=== PATIENT | female | born 1980 ===

== ENCOUNTER 2019-11-21 15:35 | Observation (INO) | payer OTHER ==
[2019-11-21] MEDS ORDERED: LORazepam 2 MG/ML INJ IV PRN ×2 (15:46→15:59)
--- NOTE | 2019-11-21 15:50 | ED ---
General Adult HPI - General Stated complaint: seizure - History of Present Illness Initial comments: Dictation was produced using rVue dictation software. please excuse any grammatical, word or spelling errors. This patient was cared for during a federal and state declared state of emergency secondary to Covid 19 Chief Complaint: 39-year-old female brought in by EMS for seizures. History of Present Illness: 39-year-old female she checked in today at [address] [place] [address]. According EMS patient began having seizures. EMS was called. Patient to the emergency department. EMS reports that patient had 2 episodes of seizures one when they initially got there and one en route to the emergency department. Patient was given a total of 10 mg of IV Versed and 4 mg of Zofran. Patient able to give some history while in the emergency department. Patient states she drinks half a gallon of liquor on a regular basis. Patient states she's had EtOH withdrawal seizures in the past. Patient states her last EtOH intake was earlier today. Patient is a limited historian. She has no pain complaints. The ROS documented in this emergency department record has been reviewed and confirmed by me. Those systems with pertinent positive or negative responses have been documented in the HPI. All other systems are other negative and/or noncontributory. PHYSICAL EXAM: General Impression: Alert and oriented x3, not in acute distress, lethargic, nystagmus, smells of EtOH HEENT: Normocephalic atraumatic, extra-ocular movements intact, pupils equal and reactive to light bilaterally, mucous membranes moist, poor dentition Cardiovascular: Heart regular rate and rhythm Chest: Able to complete full sentences, no retractions, no tachypnea Abdomen: abdomen soft, non-tender, non-distended, no organomegaly Musculoskeletal: Pulses present and equal in all extremities, no peripheral edema Motor: no focal deficits noted Neurological: CN II-XII grossly intact, no focal motor or sensory deficits noted Skin: Intact with no visualized rashes Psych: Normal affect and mood ED course: 39-year-old female presents with seizures. Patient's chronic alcoholic. She reports that she drinks half a gallon of liquor a day. Presentation is likely secondary to EtOH withdrawal. Last EtOH intake according to patient was earlier today. Patient began having seizure-like activity however she responded to gag and immediately stopped tremulous activities of the extremities. Patient reports that the nurse that she was suicidal and she would jump off a bridge. Laboratory evaluation obtained. CBC unremarkable. Metabolic panel shows bicarb of 18 with no anion gap. AST 41 rest of metabolic panel is unremarkable. Suggest slight degree of alcoholic ketoacidosis given that patient's alcohol is 269. Tox labs are negative. Patient is inebriated however she is an bleeding appropriately and demanding that she wants to leave. She removed her own IV. Patient verbally ED escalated and was agreeable to admission along with the convincing of her significant other at bedside. Patient's well-appearing. However there is concern of a alcohol withdrawal seizure. Discussed patient case with [facility] physician Dr. Claudio who is willing to accept patients care for admission. EKG interpretation: Ventricular rate 116, sinus tachycardia,. 1:30, QRS 86, QTC 455. No WI prolongation, no QTC prolongation, no ST or T-wave changes noted. Overall, this EKG is unremarkable - Related Data Allergies Allergy/AdvReac Type Severity Reaction Status Date / Time No Known Allergies Allergy Verified 11/21/19 15:47 Review of Systems ROS Statement: Those systems with pertinent positive or pertinent negative responses have been documented in the HPI. ROS Other: All systems not noted in ROS Statement are negative. Course Vital Signs 11/21/19 11/21/19 15:48 16:04 Temperature 99.3 F Pulse Rate 122 H 98 Respiratory 16 16 Rate Blood Pressure 108/80 110/78 O2 Sat by Pulse 96 96 Oximetry Medical Decision Making - Lab Data Result diagrams: 11/21/19 16:00 11/21/19 16:55 Lab Results 11/21/19 11/21/19 11/21/19 Range/Units 16:00 16:00 16:00 WBC 5.3 (3.8-10.6) k/uL RBC 4.47 (3.80-5.40) m/uL Hgb 13.9 (11.4-16.0) gm/dL Hct 41.1 (34.0-46.0) % MCV 91.9 (80.0-100.0) fL MCH 31.1 (25.0-35.0) pg MCHC 33.8 (31.0-37.0) g/dL RDW 16.9 H (11.5-15.5) % Plt Count 107 L (150-450) k/uL Neutrophils % 53 % Lymphocytes % 38 % Monocytes % 4 % Eosinophils % 2 % Basophils % 1 % Neutrophils # 2.8 (1.3-7.7) k/uL Lymphocytes # 2.0 (1.0-4.8) k/uL Monocytes # 0.2 (0-1.0) k/uL Eosinophils # 0.1 (0-0.7) k/uL Basophils # 0.0 (0-0.2) k/uL Anisocytosis Slight Sodium (137-145) mmol/L Potassium (3.5-5.1) mmol/L Chloride (98-107) mmol/L Carbon Dioxide (22-30) mmol/L Anion Gap mmol/L BUN (7-17) mg/dL Creatinine (0.52-1.04) mg/dL Est GFR (CKD-EPI)AfAm (>60 ml/min/1.73 sqM) Est GFR (CKD-EPI)NonAf (>60 ml/min/1.73 sqM) Glucose (74-99) mg/dL Plasma Lactic Acid Akira (0.7-2.0) mmol/L Calcium (8.4-10.2) mg/dL Magnesium (1.6-2.3) mg/dL Total Bilirubin (0.2-1.3) mg/dL AST (14-36) U/L ALT (4-34) U/L Alkaline Phosphatase (38-126) U/L Ammonia (<30) umol/L Creatine Kinase (30-135) U/L Troponin I (0.000-0.034) ng/mL Total Protein (6.3-8.2) g/dL Albumin (3.5-5.0) g/dL Urine HCG, Qual Not Detected (Not Detectd) Salicylates mg/dL Urine Opiates Screen Not Detected (NotDetected) Ur Oxycodone Screen Not Detected (NotDetected) Urine Methadone Screen Not Detected (NotDetected) Ur Propoxyphene Screen Not Detected (NotDetected) Acetaminophen ug/mL Ur Barbiturates Screen Not Detected (NotDetected) U Tricyclic Antidepress Not Detected (NotDetected) Ur Phencyclidine Scrn Not Detected (NotDetected) Ur Amphetamines Screen Not Detected (NotDetected) U Methamphetamines Scrn Not Detected (NotDetected) U Benzodiazepines Scrn Detected H (NotDetected) Urine Cocaine Screen Not Detected (NotDetected) U Marijuana (THC) Screen Not Detected (NotDetected) Serum Alcohol mg/dL 11/21/19 11/21/19 11/21/19 Range/Units 16:29 16:55 16:55 WBC (3.8-10.6) k/uL RBC (3.80-5.40) m/uL Hgb (11.4-16.0) gm/dL Hct (34.0-46.0) % MCV (80.0-100.0) fL MCH (25.0-35.0) pg MCHC (31.0-37.0) g/dL RDW (11.5-15.5) % Plt Count (150-450) k/uL Neutrophils % % Lymphocytes % % Monocytes % % Eosinophils % % Basophils % % Neutrophils # (1.3-7.7) k/uL Lymphocytes # (1.0-4.8) k/uL Monocytes # (0-1.0) k/uL Eosinophils # (0-0.7) k/uL Basophils # (0-0.2) k/uL Anisocytosis Sodium 143 (137-145) mmol/L Potassium 4.4 (3.5-5.1) mmol/L Chloride 115 H (98-107) mmol/L Carbon Dioxide 18 L (22-30) mmol/L Anion Gap 10 mmol/L BUN 11 (7-17) mg/dL Creatinine 0.50 L (0.52-1.04) mg/dL Est GFR (CKD-EPI)AfAm >90 (>60 ml/min/1.73 sqM) Est GFR (CKD-EPI)NonAf >90 (>60 ml/min/1.73 sqM) Glucose 80 (74-99) mg/dL Plasma Lactic Acid Akira 1.6 (0.7-2.0) mmol/L Calcium 8.6 (8.4-10.2) mg/dL Magnesium 1.9 (1.6-2.3) mg/dL Total Bilirubin 0.5 (0.2-1.3) mg/dL AST 41 H (14-36) U/L ALT 23 (4-34) U/L Alkaline Phosphatase 56 (38-126) U/L Ammonia 13 (<30) umol/L Creatine Kinase 153 H (30-135) U/L Troponin I <0.012 (0.000-0.034) ng/mL Total Protein 7.3 (6.3-8.2) g/dL Albumin 4.2 (3.5-5.0) g/dL Urine HCG, Qual (Not Detectd) Salicylates <1.0 mg/dL Urine Opiates Screen (NotDetected) Ur Oxycodone Screen (NotDetected) Urine Methadone Screen (NotDetected) Ur Propoxyphene Screen (NotDetected) Acetaminophen <10.0 ug/mL Ur Barbiturates Screen (NotDetected) U Tricyclic Antidepress (NotDetected) Ur Phencyclidine Scrn (NotDetected) Ur Amphetamines Screen (NotDetected) U Methamphetamines Scrn (NotDetected) U Benzodiazepines Scrn (NotDetected) Urine Cocaine Screen (NotDetected) U Marijuana (THC) Screen (NotDetected) Serum Alcohol 269 H* mg/dL Disposition Clinical Impression: Alcohol withdrawal Disposition: ADMITTED IP TO THIS HOSP Condition: Fair Referrals: None,Stated [Primary Care Provider] - 1-2 days Decision Time: 18:02
[2019-11-21] MEDS ORDERED: THIAMINE 100 MG/ML 2 ML VIAL IM STA (15:59)
[2019-11-21] MEDS ORDERED: SODIUM CHLORIDE 0.9% 1,000 ML IV STA (15:59)
[2019-11-21 16:20] LABS: Anisocytosis Slight; Basophils % (A) 1 %; Eosinophils # (A) 0.1 k/uL (0-0.7); Eosinophils % (A) 2 %; HCT 41.1 % (34.0-46.0); HGB 13.9 gm/dL (11.4-16.0); Lymphocytes % (A) 38 %; MCH 31.1 pg (25.0-35.0); MCHC 33.8 g/dL (31.0-37.0); MCV 91.9 fL (80.0-100.0); Mean Platelet Volume 7.8; Monocytes # (A) 0.2 k/uL (0-1.0); Monocytes % (A) 4 %; Neutrophils # (A) 2.8 k/uL (1.3-7.7); Neutrophils % (A) 53 %; Platelet Count 107 k/uL (150-450); RBC 4.47 m/uL (3.80-5.40); RDW 16.9 % (11.5-15.5); WBC 5.3 k/uL (3.8-10.6)
--- NOTE | 2019-11-21 16:38 | CT ---
EXAMINATION TYPE: CT brain wo con DATE OF EXAM: 11/21/2019 COMPARISON: None HISTORY: Seizure. CT DLP: 1078.4 mGycm Automated exposure control for dose reduction was used. The ventricles and sulci appear normal. There is no mass effect nor midline shift. There is no sign o f intracranial hemorrhage. The calvarium is intact. IMPRESSION: Negative unenhanced head CT scan.
[2019-11-21 16:42] LABS: Lactic Acid, Venous 1.6 mmol/L (0.7-2.0)
--- NOTE | 2019-11-21 16:44 | XR ---
EXAMINATION TYPE: XR chest 1V portable DATE OF EXAM: 11/21/2019 COMPARISON: NONE HISTORY: Seizure TECHNIQUE: Single view FINDINGS: Heart and mediastinum are normal. Lungs are clear. Diaphragm is normal. Bony thorax appears normal. IMPRESSION: Normal chest
[2019-11-21 16:56] LABS: Amphetamine Screen,Urine Not Detected (NotDetected); Barbiturate Screen,Urine Not Detected (NotDetected); Benzodiazepines Screen,Urine Detected (NotDetected); Cocaine Screen,Urine Not Detected (NotDetected); Methadone Screen, Urine Not Detected (NotDetected); Opiate Screen,Urine Not Detected (NotDetected); Oxycodone Screen, Urine Not Detected (NotDetected); Phencyclidine Screen,Urine Not Detected (NotDetected); Tricyclic Antidepressant,Urine Not Detected (NotDetected); Urn Cannabinoid Scrn Not Detected (NotDetected)
[2019-11-21] MEDS ORDERED: NICOTINE 21MG/24HR PATCH TRANSDERM STA (17:12)
[2019-11-21] MEDS: LORazepam 2 MG/ML INJ IV PRN ×3 (17:16→22:36)
[2019-11-21 17:39] LABS: ALT 23 U/L (4-34); AST 41 U/L (14-36); Acetaminophen <10.0 ug/mL; African American GFR (CKD) >90 (>60 ml/min/1.73 sqM); Albumin 4.2 g/dL (3.5-5.0); Alkaline Phosphatase 56 U/L (38-126); Anion Gap 10 mmol/L; Blood Urea Nitrogen 11 mg/dL (7-17); Calcium 8.6 mg/dL (8.4-10.2); Carbon Dioxide 18 mmol/L (22-30); Chloride 115 mmol/L (98-107); Creatine Kinase 153 U/L (30-135); Glucose 80 mg/dL (74-99); Magnesium 1.9 mg/dL (1.6-2.3); Non-African American GFR(CKD) >90 (>60 ml/min/1.73 sqM); Potassium 4.4 mmol/L (3.5-5.1); Salicylate <1.0 mg/dL; Sodium 143 mmol/L (137-145); Total Bilirubin 0.5 mg/dL (0.2-1.3); Total Protein 7.3 g/dL (6.3-8.2)
[2019-11-21 17:48] LABS: Alcohol 269 mg/dL
[2019-11-21] MEDS ORDERED: NALOXONE 0.4 MG/ML 1 ML VIAL IV PRN (17:57)
[2019-11-21] MEDS ORDERED: ONDANSETRON 4 MG/2 ML VIAL IVP PRN (17:57)
[2019-11-21 18:41] LABS: INR 0.9 (<1.2); Partial Thromboplastin Time 22.7 sec (22.0-30.0); Prothrombin Time 9.5 sec (9.0-12.0)
[2019-11-21] MEDS ORDERED: NICOTINE 7MG/24HR PATCH TRANSDERM STA (20:59)
[2019-11-21] MEDS: SODIUM CHLORIDE 0.9% 1,000 ML IV SCH (21:12)
[2019-11-21] MEDS ORDERED: NICOTINE POLACRILEX 2 MG GUM BUCCAL PRN (22:13)
--- NOTE | 2019-11-21 22:30 | P.HPIM ---
History of Present Illness H&P Date: 11/21/19 Chief Complaint: seizure 39 year old female with long history of alcohol abuse. patient is homeless, she voluntarily went to [facility] today for rehab, she reports that while they were taking histroy from her, she reported that she felt suicidal about a month ago however, denies any active suicidal thoughts at the moment. while at [facility], she had a seizure attack , for which EMS notified, who themselves witnessed another seizure enroute. she was givena total of 10 mg versed. in the ED, EKG showed sinus tachy, CT of the head, no acute pathology. blood work overall unremarkable. . patient currently feels hungry, she denies any other complaints. she denies any headache, fever, chills, nausea , vomiting, chest pain , SOB, abd pain , GI bleeding, or urinary symptoms Review of Systems Pertinent positives as noted in HPI. All other systems were reviewed and are negative Past Medical History Past Medical History: No Reported History History of Any Multi-Drug Resistant Organisms: None Reported Past Surgical History: No Surgical Hx Reported Past Psychological History: Depression Smoking Status: Current every day smoker Past Alcohol Use History: Abuse, Daily, Heavy Past Drug Use History: None Reported - Past Family History family Additional Family Medical History / Comment(s): alcohol abuse Medications and Allergies Home Medications Medication Instructions Recorded Confirmed Type No Known Home Medications 11/21/19 11/21/19 History Allergies Allergy/AdvReac Type Severity Reaction Status Date / Time No Known Allergies Allergy Verified 11/21/19 18:49 Physical Exam Vitals: Vital Signs Temp Pulse Resp BP Pulse Ox 11/21/19 16:04 98 16 110/78 96 11/21/19 15:48 99.3 F 122 H 16 108/80 96 Intake and Output 11/21/19 11/21/19 11/21/19 06:59 14:59 22:59 Other: Weight 70.307 kg Constitutional: No acute distress, conversant, pleasant Eyes: Anicteric sclerae, moist conjunctiva, no lid-lag Pupils equal round reactive to light ENMT: NC/AT Oropharynx clear, no erythema, exudates Neck: Supple, FROM, no masses, or JVD No carotid bruits No thyromegaly Lungs: good breath sounds bilaterally , scattered expiratory wheezing Clear to percussion Normal respiratory effort, no accessory muscle use Cardiovascular: Heart regular in rate and rhythm, No murmurs, gallops, or rubs No peripheral edema Abdominal: Soft Nontender, no guarding, rebound or rigidity Abdomen moving with respiration Normoactive bowel sounds No hepatomegaly, No splenomegaly No palpable mass No abdominal wall hernia noted Skin: Normal temperature, tone, texture, turgor No induration No subcutaneous nodules No rash, lesions No ulcers Extremities: No digital cyanosis No clubbing Pedal pulses intact and symmetrical Radial pulses intact and symmetrical No calf tenderness Psychiatric: Alert and oriented to person, place and time Appropriate affect fair judgement Neuro Muscles Strength 5/5 in all 4 extremities Sensation to light touch grossly present throughout Cranial nerves II-XII grossly intact No focal sensory deficits Lymphatics: no palpable cervical or supraclavicular , or inguinal lymph nodes Results CBC & Chem 7: 11/21/19 16:00 11/21/19 16:55 Labs: Abnormal Lab Results - Last 24 Hours (Table) 11/21/19 11/21/19 11/21/19 Range/Units 16:00 16:00 16:55 RDW 16.9 H (11.5-15.5) % Plt Count 107 L (150-450) k/uL Chloride 115 H (98-107) mmol/L Carbon Dioxide 18 L (22-30) mmol/L Creatinine 0.50 L (0.52-1.04) mg/dL AST 41 H (14-36) U/L Creatine Kinase 153 H (30-135) U/L U Benzodiazepines Scrn Detected H (NotDetected) Serum Alcohol 269 H* mg/dL Assessment and Plan Assessment: alcohol withdrawal seizure alcohol abuse , with withdrawal seizures plan seizure precautions IVF hydration with normal saline thiamine folic acid benzo per CIWA scale tobacco smoking nicotine repalcement therapy social issues, patient is homeless social insurance administrator consult for support CODE STATUS: full code DVT prophylaxis: heparin sc tid Discussed with: Patient, ER, RN Anticipated length of stay < than [address]: to [facility] A total of 75 minutes was spent on the care of this complex patient more than 50% of the time was spent in counseling and care coordination.
[2019-11-21] MEDS: HEPARIN SODIUM,PORCINE 5,000 UNIT/ML 1 ML VIAL SQ SCH (23:09)
[2019-11-22] MEDS: LORazepam 2 MG/ML INJ IV PRN ×2 (03:12→08:34)
[2019-11-22] MEDS: SODIUM CHLORIDE 0.9% 1,000 ML IV SCH (04:16)
[2019-11-22] MEDS ORDERED: PANTOPRAZOLE 40 MG TABLET PO SCH (07:30)
[2019-11-22] MEDS ORDERED: THIAMINE 100 MG TAB PO SCH (07:30)
[2019-11-22] MEDS: HEPARIN SODIUM,PORCINE 5,000 UNIT/ML 1 ML VIAL SQ SCH (08:35)
[2019-11-22 08:36] LABS: Anisocytosis Slight; Basophils # (A) 0.1 k/uL (0-0.2); Basophils % (A) 1 %; Eosinophils # (A) 0.2 k/uL (0-0.7); Eosinophils % (A) 3 %; HCT 36.4 % (34.0-46.0); HGB 12.2 gm/dL (11.4-16.0); Lymphocytes # (A) 1.9 k/uL (1.0-4.8); Lymphocytes % (A) 28 %; MCH 30.9 pg (25.0-35.0); MCHC 33.4 g/dL (31.0-37.0); MCV 92.4 fL (80.0-100.0); Mean Platelet Volume 7.3; Monocytes # (A) 0.3 k/uL (0-1.0); Monocytes % (A) 4 %; Neutrophils # (A) 4.2 k/uL (1.3-7.7); Neutrophils % (A) 62 %; RBC 3.94 m/uL (3.80-5.40); RDW 16.7 % (11.5-15.5); WBC 6.7 k/uL (3.8-10.6)
[2019-11-22 08:41] LABS: Platelet Count 252 k/uL (150-450)
[2019-11-22 08:55] LABS: ALT 20 U/L (4-34); AST 27 U/L (14-36); African American GFR (CKD) >90 (>60 ml/min/1.73 sqM); Albumin 3.7 g/dL (3.5-5.0); Alkaline Phosphatase 57 U/L (38-126); Anion Gap 6 mmol/L; Blood Urea Nitrogen 16 mg/dL (7-17); Calcium 8.7 mg/dL (8.4-10.2); Carbon Dioxide 26 mmol/L (22-30); Chloride 103 mmol/L (98-107); Glucose 119 mg/dL (74-99); Magnesium 1.6 mg/dL (1.6-2.3); Non-African American GFR(CKD) >90 (>60 ml/min/1.73 sqM); Phosphorus 3.4 mg/dL (2.5-4.5); Potassium 4.4 mmol/L (3.5-5.1); Sodium 135 mmol/L (137-145); Total Bilirubin 0.6 mg/dL (0.2-1.3); Total Protein 6.3 g/dL (6.3-8.2)
[2019-11-22] MEDS ORDERED: NICOTINE 21MG/24HR PATCH TRANSDERM SCH (09:00)
[2019-11-22] MEDS ORDERED: MULTIVITAMINS, THERA 1 EACH TAB PO SCH (09:00)
[2019-11-22 11:02] VITALS: RESP 16
[2019-11-22] MEDS: MAGNESIUM SULFATE-D5W PMX 1 GM in DEXTROSE/WATER 1 100ML.BAG IVPB SCH ×2 (11:54→13:25)
--- NOTE | 2019-11-22 12:06 | P.CN ---
Psychiatric Consult - . Consult date: 11/22/19 Consult:: 11/22/19 11:21 IDENTIFYING DATA: This patient is a 39-year-old female who is currently homeless/living with different friends and is single and has 1 daughter and is currently unemployed HISTORY OF PRESENT ILLNESS: The patient presented to the hospital yesterday and brought in by EMS after having a seizure. Patient was apparently at [facility] about to do her intake however began having a seizure outside and had 2 seizures en route to the hospital. Patient was admitted medically and apparently reported to a nurse that she had suicidal thoughts. Psychiatry is consulted to see patient for psychiatric evaluation related to suicidal thoughts. Patient reported to ER staff that she has been drinking heavily and has had withdrawal seizures in the past and had a BAL of 269 and a UDS positive for benzodiazepines. Patient's nurse claimed that patient has been denying making those statements and is not endorsing any suicidal thoughts at this time. Patient was seen at the bedside with her one-to-one sitter was agreeable to speak with com writer. Patient appeared to be calm and polite with the com writer and was directable during conversation. She states that she was standing in line and was checking into [facility] when this all occurred. 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 She states that she's been drinking approximately a fifth of vodka a day. She claims that she wants to continue to find a job and be sober. She was future oriented and spoke about finishing college at [employer]. She states that her mood is "good" and denies any depression or anxiety at this time. She denies any sleep problems. She denied any DUIs or any legal issues related to alcohol use claims that she has mild cravings at times and no current withdrawal symptoms. She states that she has been to meetings in the past which is helped however rehab has helped as well and she has gone approximately 4 times in the past. At this time patient denies any suicidal or homical ideations, intent or plan. Patient denies any auditory, visual hallucinations and denies any paranoia or delusions. Patients admits to using cigarettes along with alcohol use as described above. Patient claimed that she told the nurse when she came into the hospital that asked screening questions that she had suicidal thoughts in the past and was referring to her situation when she was 15 years old and stood on a bridge however has not had thoughts of wanting to harm herself recently and listed her family and her future/career as protective factors. PAST PSYCHIATRIC HISTORY: Patient has a a history of depression and alcohol use. Patient denies being on any psychiatric medications. Patient denies any previous psychiatric hospitalizations. She states that she used to follow up with a outpatient therapist however has not followed up in years. She did have one suicide attempt when she stood on a bridge when she was 15 years old. PAST MEDICAL HISTORY: denies. ALLERGIES: as per EMR. CHEMICAL DEPENDENCY HISTORY: as per HPI. FAMILY PSYCHIATRIC/SUBSTANCE USE HISTORY: She states that she does not know much about her family. SOCIAL HISTORY: Patient was born and raised in [place] and claims to have moved to [place]. She states that she initially dropped out of high school to have her daughter but then went back to get her GED after dropping out. She states that afterwards she was able to get into college for horticulture at [employer] and recently completed her degree in March. 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 She is currently homeless/living with friends is single and has 1 daughter. She denies any legal problems or going to [facility] or [facility] in the past. MENTAL STATUS EXAM: General Appearance: Patient appears to be stated age is alert, pleasant, and cooperative. Patient appears to have fair hygiene and grooming wearing hospital gown with fair eye contact. Behavior: Patient is calmly lying in bed without any agitated behavior. Cooperative. Speech: Patient's speech is fluent and nonpressured. Mood/Affect: Patient reports their mood is "ok", affect is congruent Suicidality/Homicidality: Patient denies having any suicidal or homicidal ideation intent or plan. Perceptions: Patient denies any visual hallucinations and denies any auditory hallucinations Though content/process: There is no evidence of any delusional thought content and thought process is linear and goal-directed. Future oriented and spoke about her goals in life and getting sober. Memory and concentration: AOX3, grossly intact for the purposes of this session. Can spell "WORLD" backwards Judgment and insight: Fair IMPRESSIONS: Alcohol use disorder, moderate-severe, currently in withdrawal History of depressive disorder Nicotine dependence PLAN: -At this time patient DOES NOT meet criteria for inpatient psychiatric admission. -Would recommend the following medication changes/additions: Patient was offered anti-craving medications for her alcohol use however patient declined at this time. There is no real indication at this time to start an antidepressant and can be evaluated further in the future after patient remains sober if an antidepressant would be warranted. -Continue with CIWA protocol with when necessary Ativan for alcohol withdrawal. -Folic acid and thiamine -Discontinued one-to-one sitter as patient contracts to safety and is not currently endorsing any suicidal thoughts. -Patient will be discharged back to [facility] after being medically cleared to continue on with substance use rehab program. -Psychiatry will sign off at this point, please contact with any questions. 11/22/19 11:56
[2019-11-22 13:21] VITALS: BP 112/78; PULSE 78; TEMP 98
--- NOTE | 2019-11-22 13:54 | P.DS ---
Providers Date of admission: 11/21/19 17:57 Expected date of discharge: 11/22/19 Attending physician: Latisha Duque DO Consults: 11/21/19 17:43 Consult Physician Routine Consulting Provider: Corby Valenzuela Consult Reason/Comments: suicidal Do you want consulting provider notified?: Already Contacted Primary care physician: Stated None Hospital Course: 39-year-old female with long history of alcohol abuse, homelessness presented to the ED after a witnessed seizure at [facility]. She denied any suicidal ideation during her hospitalization. In the ED, she was noted to be tachycardic with a pulse 122. CBC shows thrombocytopenia with platelet count 107. CMP showed chloride of 115, bicarbonate of 18, creatinine 0.5, AST of 41, CPK of 153. Ammonia was negative. UDS was positive for benzodiazepines. Serum alcohol was 269. Patient was admitted for further management and observation with suicidal precautions and psychiatry consultation. Psychiatry evaluated the patient include the patient for discharge. Patient was seen and examined. No acute events overnight. Patient denies any suicidal ideation. She has no complaints. Patient requesting to go back to [facility]. She denies any chest pain, shortness breath or palpitations. No nausea or vomiting. No fever or chills. No further seizure episodes. General: [non toxic], [no distress], [appears at stated age] Derm: [warm], [dry] Head: [atraumatic], [normocephalic], [symmetric] Eyes: [EOMI], [no lid lag], [anicteric sclera] Mouth: [no lip lesion], [mucus membranes moist] Cardiovascular: [S1S2 reg], [no murmur], [positive posterior tibial pulse bilateral], Lungs: [CTA bilateral], [no rhonchi, no rales] , [no accessory muscle use] Abdominal: [soft], [ nontender to palpation], [no guarding], [no appreciable organomegaly] Ext: [no gross muscle atrophy], [no edema], [no contractures] Neuro: [ CN II-XI grossly intact], [no focal neuro deficits] Psych: [Alert], [oriented], [appropriate affect] Alcohol withdrawal seizure Alcohol abuse with intoxication Suicidal ideation Tobacco smoker Resolved: Tachycardia, thrombocytopenia Patient was placed on CIWA protocol and given Ativan as needed for withdrawal symptoms. She will be continued on thiamine and multivitamin. IVF will be discontinued and patient encouraged hydration by mouth. Her tachycardia did resolve with Ativan. With regard to her suicidal ideation, psychiatry has evaluated the patient and cleared the patient for discharge. She was given nicotine patch given her history of smoking. Plans to DC to [facility], transportation to [facility] patient. Patient verbalized understanding of the plan. This complex discharge took about 35 minutes to complete. Pertinent Studies: Brain CT, chest x-ray Patient Condition at Discharge: Fair Plan - Discharge Summary Discharge Rx Participant: No New Discharge Prescriptions: New Multivitamins, Thera [Multivitamin (formulary)] 1 each PO DAILY tab Thiamine [Vitamin B-1] 100 mg PO BID-W/MEALS tab Discharge Medication List Multivitamins, Thera [Multivitamin (formulary)] 1 each PO DAILY tab 11/22/19 [Rx] Thiamine [Vitamin B-1] 100 mg PO BID-W/MEALS tab 11/22/19 [Rx] Follow up Appointment(s)/Referral(s): None,Stated [Primary Care Provider] - 1-2 days Patient Instructions/Handouts: Alcohol Withdrawal (DC) Activity/Diet/Wound Care/Special Instructions: [facility] will transport back at d/c, please call [phone]. Follow-up PCP within 3 days of discharge. Take all medications as advised. Come back to the ED or call 911 for seizures, worsening alcohol withdrawal symptoms, chest pain, shortness of breath or palpitations. Discharge Disposition: DC/TRNS INTERMEDIATE CARE FAC
== END 2019-11-22 13:06 ==
LOC: EC 15:35 → INTOOBSV 17:57 → 3SCARD 17:57 → UNDODISIN 11-22 13:06
PROVIDERS: ADMIT Internal Medicine; ATTEND Internal Medicine
DX: F10.129 Alcohol abuse with intoxication, unspecified (principal); F10.19 Alcohol abuse with unspecified alcohol-induced disorder; R56.9 Unspecified convulsions; R00.0 Tachycardia, unspecified; F32.9 Major depressive disorder, single episode, unspecified; F17.210 Nicotine dependence, cigarettes, uncomplicated; Y90.8 Blood alcohol level of 240 mg/100 ml or more; D69.6 Thrombocytopenia, unspecified; Z59.0 Homelessness; Z56.0 Unemployment, unspecified; Z20.828 Contact with and (suspected) exposure to other viral communicable diseases; Z91.5 Personal history of self-harm; Z81.1 Family history of alcohol abuse and dependence
CPT/HCPCS: 96376 ×3; 96361; 96374; 99285; 36415; 93005; 80053 ×2; 82140; 82550; 83605; 83735 ×2; 84100; 84484; 85025 ×2; 85610; 85730; 81025; 80306; 83520; 71045; 70450; G0378 ×2; G0480 ×2; U0003; S4990 ×3; J2060 ×2; J3475; 80320; 80329